=== PATIENT | male | born 1990 | race Caucasian/White ===

== ENCOUNTER 2021-09-28 17:12 | Emergency (ER) | payer MEDICAID ==
[2021-09-28] MEDS ORDERED: Clindamycin HCl 150 MG Cap PO ONE (19:53)
--- NOTE | 2021-09-28 19:55 | EDM.PDOC ---
ED HPI GENERAL MEDICAL PROBLEM - General Chief Complaint: ENT Problem Stated Complaint: TOOTH PROBLEM Time Seen by Provider: 09/28/21 19:40 Source of Information: Reports: Patient History Limitations: Reports: No Limitations - History of Present Illness INITIAL COMMENTS - FREE TEXT/NARRATIVE: ED with dental infection started yesterday, today increased swelling, has not attempted contacting dentist yet. no fever or chills, Facial swelling tenderness left side of face . Right Upper Gums Pain Score (Numeric/FACES): 4 - Related Data Allergies Allergy/AdvReac Type Severity Reaction Status Date / Time No Known Allergies Allergy Verified 09/28/21 17:56 Home Meds: Home Meds . [No Known Home Meds] 09/28/21 [History] Past Medical History - Past Health History Medical/Surgical History: Denies Medical/Surgical History Social & Family History - Tobacco Use Tobacco Use Status *Q: Current Every Day Tobacco User Years of Tobacco use: 15 Packs/Tins Daily: 0.5 Second Hand Smoke Exposure: Yes - Recreational Drug Use Recreational Drug Use: No ED ROS ENT - Review of Systems Review Of Systems: Comprehensive ROS is negative, except as noted in HPI. ED EXAM, ENT - Physical Exam Exam: See Below Exam Limited By: No Limitations General Appearance: Alert, Mild Distress Eye Exam: Bilateral Eye: EOMI, PERRL Ears: Normal External Exam, Normal TMs Nose: Normal Inspection Mouth/Throat: Dental Abcess (left upper), Dental Pain, Dental Tenderness, Other (poor dentation, multiple areas of decay) Head: Atraumatic, Normocephalic, Facial Swelling (left cheek) Neck: Lymphadenopathy (L) Respiratory/Chest: No Respiratory Distress, Lungs Clear, Normal Breath Sounds Cardiovascular: Normal Peripheral Pulses, Regular Rate, Rhythm Extremities: Normal Range of Motion Neurological: Alert, Oriented, Normal Cognition Psychiatric: Normal Affect Skin: Warm, Dry, Intact, Normal Color Course - Vital Signs Last Recorded V/S: Last Vital Signs Temp 99.0 F 09/28/21 19:15 Pulse 92 09/28/21 19:15 Resp 18 09/28/21 19:15 BP 138/94 H 09/28/21 19:15 Pulse Ox 97 09/28/21 19:15 - Orders/Labs/Meds Meds: Medications Discontinued Medications Generic Name Dose Route Start Last Admin Trade Name Freq PRN Reason Stop Dose Admin Clindamycin HCl 300 mg 09/28/21 19:53 09/28/21 20:05 Clindamycin Hcl 150 Mg Cap PO 09/28/21 19:54 300 mg ONETIME ONE Administration Departure - Departure Time of Disposition: 19:55 Disposition: Home, Self-Care 01 Condition: Good Clinical Impression: Dental caries extending into dentin, Dental abscess - Discharge Information *PRESCRIPTION DRUG MONITORING PROGRAM REVIEWED*: No *COPY OF PRESCRIPTION DRUG MONITORING REPORT IN PATIENT DAPHNE: No Instructions: Dental Abscess, [id number] Forms: ED Department Discharge Additional Instructions: alternate tylenol 500mg and ibuprofen 600mg every 4 hours as needed for discomfort clindamycin 300mg three times daily for one week follow up with dentist oral rinses after meals room temperature liquid avoid chewing on right side Sepsis Event Note (ED) - Evaluation Sepsis Screening Result: No Definite Risk
== END 2021-09-28 20:11 | disposition home or self-care (01) ==
LOC: DL.ED 17:12
DX: K04.7 Periapical abscess without sinus (principal); K02.9 Dental caries, unspecified; Z72.0 Tobacco use
CPT/HCPCS: 99282; A9270

== ENCOUNTER 2024-07-12 16:54 | Emergency (ER) | payer BC ==
[2024-07-12 17:24] LABS: HEMATOCRIT 46.4 % (40.0-54.0); HEMOGLOBIN 15.9 g/dL (14.0-18.0); MEAN CORPUSCULAR HEMOGLOBIN 30.2 pg (27.0-34.0); MEAN CORPUSCULAR HGB CONC 34.3 g/dL (33.0-35.0); PLATELET COUNT,PLT 271 10^3/uL (150-450); RED BLOOD CELL COUNT 5.27 10^6/uL (4.6-6.2)
[2024-07-12] MEDS: Sodium Chloride 0.9% 1,000 ML IV SCH (17:31)
[2024-07-12 17:36] LABS: BASOPHILS PERCENT AUTO 0.2 % (0.0-1.0); EOSINOPHILS PERCENT AUTO 4.2 % (1.0-3.0); LYMPHOCYTES PERCENT AUTO 67.9 % (20.5-50.1); MONOCYTES PERCENT AUTO 12.2 % (2-8); NEUTROPHILS PERCENT AUTO 15.5 % (42.2-75.2)
[2024-07-12 17:49] LABS: A/G RATIO 0.8; ALANINE AMINOTRANSFERASE,ALT 68 U/L (16-63); ALBUMIN 3.4 g/dL (3.4-5.0); ALKALINE PHOSPHATASE 118 U/L (46-116); ANION GAP 12.9 mEq/L (7-13); ASPARTATE AMNIOTRANSFERASE,AST 47 U/L (15-37); BILIRUBIN TOTAL 0.8 mg/dL (0.2-1.0); BLOOD UREA NITROGEN,BUN 12 mg/dL (7-18); BUN/CREATININE RATIO 11.7 (No establ ref range); CALCIUM 8.8 mg/dL (8.5-10.1); CARBON DIOXIDE,CO2 29 mmol/L (21-32); CHLORIDE,CL 98 mmol/L (98-107); CREATININE 1.03 mg/dL (0.70-1.30); GLUCOSE RANDOM 111 mg/dL (70-99); MAGNESIUM 2.1 mg/dL (1.8-2.4); POTASSIUM,K 3.9 mmol/L (3.5-5.1); PROTEIN TOTAL,TP 7.9 g/dL (6.4-8.2); SODIUM,NA 136 mmol/L (136-145)
[2024-07-12 17:50] LABS: PTT,PARTIAL THROMBOPLSTIN TIME 23.4 SEC (22.0-34.0)
[2024-07-12 17:52] LABS: ESTIMATED GFR 98 mL/min (>=60)
[2024-07-12] MEDS: Iopamidol 755 Mg/ML 100 ML Bottle IVPUSH ONE (18:14)
[2024-07-12 18:19] LABS: BAND PERCENT MAN 1 %; SEG NEUTROPHILS PERCENT MAN 10 % (42-75)
[2024-07-12 18:20] LABS: EOSINOPHILS PERCENT MAN 2 % (1-3); LYMPHOCYTES PERCENT MAN 75 % (20-50); MONOCYTES PERCENT MAN 12 % (2-8)
[2024-07-12] MEDS: Albuterol/Ipratropium 3.0-0.5 MG/3 ML Neb Soln NEB ONE (19:09)
[2024-07-16 12:47] LABS: NEUTROPHILS% 15 % (41-71)
== END 2024-07-12 22:44 ==
LOC: DL.ED 16:54
DX: J18.9 Pneumonia, unspecified organism (principal); B20 Human immunodeficiency virus [HIV] disease
CPT/HCPCS: 36415; 71046; 71275; 80053; 83735; 84145; 84484; 85025; 85379; 85610; 85651; 85730; 86140; 86361; 87389; 87536; 87804; 93005; 99285; J7030; J7620-GY; Q9967; U0002

== ENCOUNTER 2024-07-28 13:32 | Emergency (ER) | payer BC ==
[2024-07-28] MEDS: Take Home: Amoxicillin/Clavulanate K 875-125 MG Tab, 6 Tab Pack PO ONE (17:15)
[2024-07-28] MEDS: Nystatin Susp 100,000 Unit/ML 5 ML UD Cup PO ONE (17:15)
[2024-07-28] MEDS: Take Home: Lidocaine 2% Viscous Solution 15 ML UD, 2 Cup Pack PO ONE (17:15)
== END 2024-07-28 17:18 | disposition home or self-care (01) ==
LOC: DL.ED 13:32
DX: K02.9 Dental caries, unspecified (principal); F17.210 Nicotine dependence, cigarettes, uncomplicated
CPT/HCPCS: 99282; A9270